=== PATIENT | female | born 1935 | race Caucasian/White ===

== ENCOUNTER 2016-06-07 18:38 | Emergency (ER) | payer OTHER ==
[~2016-06-07] VITALS: Ht 162.6 cm; Wt 77.1 kg
[~2016-06-07 18:38] MED LIST: ANTIVERT 12.512.5 MG PO; ATORVASTATIN CA10 MG PO; DILTIAZEM HCL180 MG PO; FOLBIC 2 MG-2.51 TAB PO; MASON NATURAL1200 MG PO; METOPROLOL SUCC50 MG PO; OSCAL ULTRA 6001 TAB PO; VITAMIN C500 M3 PO; WARFARIN SODIUM5 MG PO
[2016-06-07 18:52] VITALS: BP 133/76
--- NOTE | 2016-06-07 19:55 | ED GI/GU/ABDOMINAL COMPLAINT ---
History of Present Illness General Chief Complaint: General Adult Stated Complaint: PT SIB BY WITH HIGH INR 5.8 Source: patient Exam Limitations: no limitations Vital Signs & Intake/Output Vital Signs & Intake/Output Vital Signs Date Time Temp Pulse Resp B/P Pulse O2 O2 Flow FiO2 Ox Delivery Rate 06/07 1852 98.3 106 16 133/76 98 Room Air Room Air Allergies Coded Allergies: MDX - Epinephrine (From Lidocaine HCl and Epinephrine) (10/13/10) MDX - Erythromycin (Erythromycin) (10/13/10) MDX - Lidocaine (From Lidocaine HCl and Epinephrine) (10/13/10) MDX - PCN (penicillin) (PCN (PENICILLIN)) (10/13/10) Reconcile Medications Ascorbic Acid (Vitamin C) 500 MG TAB 1 TAB PO DAILY SUPPLEMENT (Reported) Atorvastatin Calcium (Lipitor) 10 MG TABLET 1 TAB PO DAILY CHOLESTEROL ( Reported) [place]/Ca/Cu/MG/Mn/Vit C/Vit (Oscal Ultra 600) (Unknown Strength) TAB (Unknown Dose) PO DAILY SUPPLEMENT (Reported) Cyanocobalamin/Folic Acid/Py (Folbic 2 MG-2.5 MG-25 MG) (Unknown Strength) TAB (Unknown Dose) PO DAILY SUPPLEMENT (Reported) DILTIAZEM HCL (Diltiazem 24HR ER) 180 MG CAP.ER.24H 1 CAP PO DAILY HEART ( Reported) Meclizine (Antivert) 12.5 MG TABLET 1-2 TAB PO Q6-8P PRN vertigo/dizziness take every 6 hours until symptoms subside then as needed Metoprolol Succinate 50 MG TAB.ER.24H 1 TAB PO BID HEART (Reported) OMEGA-3 FATTY ACIDS/FISH OIL (Fish Oil 1,200 MG Softgel) 360 MG-1,200 MG CAPSULE 1 SGL PO DAILY SUPPLEMENT (Reported) Warfarin Sodium 5 MG TABLET 1-1.5 TAB PO AD BLOOD THINNER (Reported) Triage Note: PT TO TRIAGE AFTER BEING TOLD TO COME TO ER FOR INR OF 5.8. PT IS ON COUMADIN AND WAS TAKING AN EXTRA PILL ALL WEEK DUE TO THE INR BEING 1.7 LAST WEEK. PT HAS NO COMPLAINTS. NO BLEEDING RECTALLY PER PT Triage Nurses Notes Reviewed? yes ? n Is pt currently ? No HPI: 81-year-old female who is on chronic Coumadin therapy for PE DVT, had her INR checked by her primary care doctor's office today and was told this afternoon to come to the ER for evaluation as her INR is elevated to 5.8. She denies any complaints, she has no signs of bruising or bleeding, no melena, no epistaxis, not feeling lightheaded or dizzy. She had a low INR last week and she was told to double her INR dose for this week, she has yet to take her dose this evening. (CELESTINE STUART) Past History Travel History Traveled to [place] past 21 day No Medical History Any Pertinent Medical History? see below for history Neurological: NONE EENT: NONE Cardiovascular: AFIB, hyperlipidemia, DVT Respiratory: pulmonary embolism Gastrointestinal: NONE Hepatic: NONE Renal: NONE Musculoskeletal: NONE Psychiatric: NONE Endocrine: NONE Blood Disorders: NONE Cancer(s): NONE TILE SETTER APPRENTICE/Reproductive: NONE Surgical History Surgical History: non-contributory Psychosocial History What is your primary language Macedonian Tobacco Use: Never used ETOH Use: denies use Illicit Drug Use: denies illicit drug use Family History Hx Contributory? No (CELESTINE STUART) Review of Systems Review of Systems Constitutional: Reports: see HPI. EENTM: Reports: no symptoms. Respiratory: Reports: no symptoms. Cardiovascular: Reports: no symptoms. GI: Reports: no symptoms. Genitourinary: Reports: no symptoms. Musculoskeletal: Reports: no symptoms. Skin: Reports: no symptoms. Neurological/Psychological: Reports: no symptoms. Hematologic/Endocrine: Reports: no symptoms. Immunologic/Allergic: Reports: no symptoms. All Other Systems: Reviewed and Negative (CELESTINE STUART) Physical Exam Physical Exam General Appearance: well developed/nourished Gastrointestinal: normal bowel sounds, soft, non-tender, no organomegaly Rectal: normal inspection, heme negative stool (brown) Comments: Well-developed well-nourished no apparent distress. HEENT: Atraumatic, extraocular motion intact Neck: Supple, no lymphadenopathy Back: Nontender Respiratory: No respiratory distress Extremities: No edema, full range of motion Neuro: Alert and oriented x3 Psych: Mood affect normal, normal memory normal judgment. Skin: Warm and dry, no rash on exposed skin Core Measures ACS in differential dx? No Severe Sepsis Present: No Septic Shock Present: No (CELESTINE STUART) Progress Differential Diagnosis: AAA, AMI, appendicitis, biliary colic, bowel obstruction , colon cancer, cholecystitis, diverticulitis, ectopic , endometritis, esophageal varices, gastritis, hepatitis, hernia, hemorrhoids, ischemic bowel, inflamm bowel dis, intrauterine , kidney stone, Kristy-Rose tear, ovarian cyst, ovarian torsion, pancreatitis, PID/cervicitis, peptic ulcer, PUD/ GERD, perforated viscous, SBO, threatened AB, UTI/pyelo Plan of Care: Patient with INR 5.8, no signs of bleeding, no melena. She should hold her INR tonight and tomorrow and follow-up with her primary care doctor's office tomorrow to have an INR rechecked in the next few days. She will watch for any signs of bleeding or melena and return with any concerns Initial ED EKG: none (CELESTINE STUART) Departure Departure Disposition: HOME OR SELF CARE Condition: Stable Clinical Impression Primary Impression: Elevated INR Referrals: ANA ROSA LANDON,WILL Perla (PCP/Family) Additional Instructions: Do not take your Coumadin tonight. Please call your primary care doctor's office for further advice as to when you should start retaking your Coumadin. YOU will need to have another blood test in the next few days to make sure your INR is between 2 and 3 before you restart your Coumadin. Departure Forms: Customer Survey General Discharge Information (CELESTINE STUART) PA/TUBE SPLICER Co-Sign Statement Statement: ED Attending supervision documentation- x I saw and evaluated the patient. I have also reviewed all the pertinent lab results and diagnostic results. I agree with the findings and the plan of care as documented in the PA's/TUBE SPLICER's documentation. [] I have reviewed the ED Record and agree with the PA's/TUBE SPLICER's documentation. [] Additions or exceptions (if any) to the PAs/TUBE SPLICER's note and plan are summarized below: [] (COLE LANDON,DOROTHY)
== END 2016-06-07 19:59 ==
LOC: ERH 18:38
DX: R79.1 Abnormal coagulation profile (principal); Z79.01 Long term (current) use of anticoagulants